=== PATIENT | male | born 1950 | race Caucasian/White ===

== ENCOUNTER → 2023-07-26 06:26 | Outpatient (REF) | payer MEDICARE, SELFPAY ==
[2023-07-26 07:40] LABS: ALT (SGPT) 27 U/L (0-50); AST (SGOT) 30 U/L (17-59); Albumin 4.7 g/dl (3.5-5.0); Alkaline Phosphatase 60 U/L (38-126); Blood Urea Nitrogen 25 mg/dl (9-20); Calcium 9.9 mg/dl (8.4-10.2); Carbon Dioxide 25 mmol/L (22-30); Chloride 103 mmol/L (98-107); Glucose 152 mg/dl (70-99); HDL Cholesterol 80 mg/dl; LDL Cholesterol, Calculated 48 mg/dl; Potassium 5.3 mmol/L (3.5-5.1); Sodium 135 mmol/L (135-145); Total Bilirubin 0.3 mg/dl (0.2-1.3); Total Cholesterol 147 mg/dl (50-199); Total Protein 7.2 g/dl (6.3-8.2); Triglyceride 97 mg/dl (10-149); Very Low Density Lipoprotein 19 mg/dl (0-30)
[2023-07-26 07:43] LABS: Microalbumin, Random Urine < 0.6 mg/dl (0.6-1.7)
[2023-07-26 07:54] LABS: eGFR > 60.00
[2023-07-26 08:05] LABS: TSH 3.21 uIU/ml (0.47-4.68)
[2023-07-26 11:05] LABS: Glycohemoglobin (HgbA1c) 6.6 % (4.0-5.6)
== END ==
LOC: REG 06:26
PROVIDERS: ATTENDING PHYSICIAN Internal Medicine Endocrinology, Diabetes & Metabolism
DX: E11.65 Type 2 diabetes mellitus with hyperglycemia (principal); Z79.4 Long term (current) use of insulin; E78.49 Other hyperlipidemia
CPT/HCPCS: 36415; 80053; 80061; 82043; 82570; 83036; 84443

== ENCOUNTER 2023-09-22 08:53 | Outpatient (RCR) | payer MEDICARE, SELFPAY | END 2023-09-22 23:59 | disposition home or self-care (01) | LOC: RPT 08:53 | PROVIDERS: ATTENDING PHYSICIAN Physician Assistant Surgical; FAMILY PHYSICIAN Family Medicine | DX: M54.16 Radiculopathy, lumbar region (principal); Z73.6 Limitation of activities due to disability | CPT/HCPCS: 97110; 97140; 97162 ==

== ENCOUNTER → 2023-09-27 07:34 | Outpatient (REF) | payer MEDICARE, SELFPAY | LOC: DHCBC/DCA 07:34 | PROVIDERS: ATTENDING PHYSICIAN Internal Medicine Cardiovascular Disease; FAMILY PHYSICIAN Family Medicine | DX: I25.10 Atherosclerotic heart disease of native coronary artery without angina pectoris (principal); R06.09 Other forms of dyspnea | CPT/HCPCS: 78452; 93017; A9500 ==

== ENCOUNTER 2023-10-16 08:57 | Outpatient (RCR) | payer MEDICARE, SELFPAY | END 2023-10-17 11:59 | disposition home or self-care (01) | LOC: RPT 08:57 | PROVIDERS: ATTENDING PHYSICIAN Physician Assistant Surgical; FAMILY PHYSICIAN Family Medicine | DX: M54.16 Radiculopathy, lumbar region (principal); Z73.6 Limitation of activities due to disability | CPT/HCPCS: 97110; 97140; 97530 ==

== ENCOUNTER → 2023-11-09 07:01 | Outpatient (REF) | payer MEDICARE, SELFPAY ==
[2023-11-09 07:49] LABS: % Eosinophils 4.9 % (0-6); % Immature Granulocytes 0.1 % (0-0.5); % Lymphocytes 25.5 % (20.5-51.1); % Neutrophils 58.5 % (42.2-75.2); Absolute Basophils 0.1 10^3/uL (0-0.2); Absolute Eosinophils 0.4 10^3/uL (0-0.7); Absolute Lymphocytes 1.9 10^3/uL (1.2-3.4); Absolute Monocytes 0.7 10^3/uL (0.1-0.6); Absolute Neutrophils 4.3 10^3/uL (1.4-6.5); Hematocrit 42.7 % (39.0-52.0); Hemoglobin 13.8 g/dL (13.0-18.0); Mean Corp Hgb Conc. 32.3 g/dL (33.0-37.0); Mean Corpuscular Volume 80.6 fL (80.0-94.0); Mean Platelet Volume 10.2 fL (7.4-10.4); Nucleated Red Blood Cells % 0 % (-); Platelet Count 228 10^3/uL (130-400); Red Cell Dist. Width 15.2 % (11.5-14.5); White Blood Cell Count 7.3 10^3/uL (4.8-10.8)
[2023-11-09 07:52] LABS: Urine Albumin Negative (Neg - Trace); Urine Bilirubin Negative (Negative); Urine Character Clear (Clear); Urine Color Yellow; Urine Glucose 3+ (Negative); Urine Ketone Negative (Negative); Urine Leukocyte Negative (Negative); Urine Nitrite Negative (Negative); Urine Occult Blood Negative (Negative); Urine Specific Gravity 1.015 (<1.030); Urine Urobilinogen Negative (Neg - 1+)
[2023-11-09 08:21] LABS: ALT (SGPT) 23 U/L (0-50); AST (SGOT) 33 U/L (17-59); Albumin 4.4 g/dl (3.5-5.0); Alkaline Phosphatase 57 U/L (38-126); Blood Urea Nitrogen 23 mg/dl (9-20); Calcium 9.7 mg/dl (8.4-10.2); Carbon Dioxide 23 mmol/L (22-30); Chloride 105 mmol/L (98-107); Glucose 143 mg/dl (70-99); HDL Cholesterol 76 mg/dl; LDL Cholesterol, Calculated 50 mg/dl; Potassium 4.7 mmol/L (3.5-5.1); Sodium 135 mmol/L (135-145); Total Bilirubin 0.5 mg/dl (0.2-1.3); Total Cholesterol 140 mg/dl (50-199); Total Protein 6.8 g/dl (6.3-8.2); Triglyceride 72 mg/dl (10-149); Very Low Density Lipoprotein 14 mg/dl (0-30); eGFR > 60.00
[2023-11-09 08:37] LABS: Vitamin D, 25-OH*** 65.8 ng/mL (30-80)
[2023-11-09 08:51] LABS: PSA, Total - Screen 1.06 ng/ml (0.0-4.0)
[2023-11-09 08:53] LABS: TSH 3.19 uIU/ml (0.47-4.68)
[2023-11-09 09:16] LABS: Microalbumin, Random Urine <0.6 mg/dl (0.6-1.7)
[2023-11-10 10:12] LABS: Glycohemoglobin (HgbA1c) 6.8 % (4.0-5.6)
== END ==
LOC: REG 07:01
PROVIDERS: ATTENDING PHYSICIAN Internal Medicine Endocrinology, Diabetes & Metabolism; FAMILY PHYSICIAN Family Medicine; OTHER PHYSICIAN Internal Medicine Advanced Heart Failure and Transplant Cardiology; REFERRING PHYSICIAN Internal Medicine Cardiovascular Disease
DX: E11.69 Type 2 diabetes mellitus with other specified complication (principal); Z12.5 Encounter for screening for malignant neoplasm of prostate; E11.9 Type 2 diabetes mellitus without complications; E55.9 Vitamin D deficiency, unspecified
CPT/HCPCS: 36415; 80053; 80061; 81003; 82043; 82306; 82570; 83036; 84443; 85025; G0103

== ENCOUNTER → 2024-02-08 06:39 | Outpatient (REF) | payer MEDICARE, SELFPAY ==
[2024-02-08 07:46] LABS: ALT (SGPT) 25 U/L (0-50); AST (SGOT) 31 U/L (17-59); Albumin 4.6 g/dl (3.5-5.0); Alkaline Phosphatase 54 U/L (38-126); Blood Urea Nitrogen 25 mg/dl (9-20); Calcium 9.7 mg/dl (8.4-10.2); Carbon Dioxide 27 mmol/L (22-30); Chloride 102 mmol/L (98-107); Glucose 123 mg/dl (70-99); HDL Cholesterol 74 mg/dl; LDL Cholesterol, Calculated 56 mg/dl; Potassium 4.8 mmol/L (3.5-5.1); Sodium 140 mmol/L (135-145); Total Bilirubin 0.3 mg/dl (0.2-1.3); Total Cholesterol 149 mg/dl (50-199); Total Protein 7.1 g/dl (6.3-8.2); Triglyceride 95 mg/dl (10-149); Very Low Density Lipoprotein 19 mg/dl (0-30); eGFR > 60.00
[2024-02-08 09:09] LABS: Glycohemoglobin (HgbA1c) 6.8 % (4.0-5.6)
== END ==
LOC: REG 06:39
PROVIDERS: ATTENDING PHYSICIAN Internal Medicine Endocrinology, Diabetes & Metabolism; FAMILY PHYSICIAN Family Medicine; OTHER PHYSICIAN Internal Medicine Advanced Heart Failure and Transplant Cardiology; REFERRING PHYSICIAN Internal Medicine Cardiovascular Disease
DX: E11.9 Type 2 diabetes mellitus without complications (principal)
CPT/HCPCS: 36415; 80053; 80061; 83036

== ENCOUNTER → 2024-03-13 09:08 | Outpatient (REF) | payer MEDICARE, SELFPAY | LOC: RCS 09:08 | PROVIDERS: ATTENDING PHYSICIAN Internal Medicine Cardiovascular Disease; FAMILY PHYSICIAN Family Medicine | DX: R06.09 Other forms of dyspnea (principal); I35.1 Nonrheumatic aortic (valve) insufficiency | CPT/HCPCS: 93306 ==

== ENCOUNTER → 2024-03-25 06:30 | Outpatient (REF) | payer MEDICARE, SELFPAY ==
[2024-03-25 08:21] LABS: Blood Urea Nitrogen 21 mg/dl (9-20); Calcium 9.4 mg/dl (8.4-10.2); Carbon Dioxide 22 mmol/L (22-30); Chloride 102 mmol/L (98-107); Glucose 124 mg/dl (70-99); Potassium 4.3 mmol/L (3.5-5.1); Sodium 137 mmol/L (135-145); eGFR > 60.00
== END ==
LOC: REG 06:30
PROVIDERS: ATTENDING PHYSICIAN Internal Medicine Cardiovascular Disease; FAMILY PHYSICIAN Family Medicine
DX: I77.819 Aortic ectasia, unspecified site (principal); I10 Essential (primary) hypertension
CPT/HCPCS: 36415; 80048

== ENCOUNTER → 2024-04-11 07:29 | Outpatient (REF) | payer OTHER, SELFPAY | LOC: RAD 07:29 | PROVIDERS: ATTENDING PHYSICIAN Internal Medicine Cardiovascular Disease; FAMILY PHYSICIAN Family Medicine | DX: I77.819 Aortic ectasia, unspecified site (principal) | CPT/HCPCS: 71275; Q9967 ==

== ENCOUNTER → 2024-05-09 06:19 | Outpatient (REF) | payer OTHER, SELFPAY ==
[2024-05-09 07:34] LABS: ALT (SGPT) 25 U/L (0-50); AST (SGOT) 28 U/L (17-59); Albumin 4.3 g/dl (3.5-5.0); Alkaline Phosphatase 56 U/L (38-126); Blood Urea Nitrogen 17 mg/dl (9-20); Calcium 9.3 mg/dl (8.4-10.2); Carbon Dioxide 21 mmol/L (22-30); Chloride 104 mmol/L (98-107); Glucose 110 mg/dl (70-99); HDL Cholesterol 70 mg/dl; LDL Cholesterol, Calculated 43 mg/dl; Potassium 3.9 mmol/L (3.5-5.1); Sodium 136 mmol/L (135-145); Total Bilirubin 0.4 mg/dl (0.2-1.3); Total Cholesterol 130 mg/dl (50-199); Total Protein 6.6 g/dl (6.3-8.2); Triglyceride 85 mg/dl (10-149); Very Low Density Lipoprotein 17 mg/dl (0-30); eGFR > 60.00
[2024-05-09 08:48] LABS: TSH 3.59 uIU/ml (0.47-4.68)
[2024-05-09 09:43] LABS: Glycohemoglobin (HgbA1c) 6.3 % (4.0-5.6)
== END ==
LOC: REG 06:19
PROVIDERS: ATTENDING PHYSICIAN Internal Medicine Endocrinology, Diabetes & Metabolism; FAMILY PHYSICIAN Family Medicine
DX: E11.65 Type 2 diabetes mellitus with hyperglycemia (principal); Z79.4 Long term (current) use of insulin; E78.2 Mixed hyperlipidemia; I10 Essential (primary) hypertension
CPT/HCPCS: 36415; 80053; 80061; 83036; 84443

== ENCOUNTER → 2024-08-06 06:24 | Outpatient (REF) | payer OTHER, SELFPAY ==
[2024-08-06 08:10] LABS: ALT (SGPT) 22 U/L (0-50); AST (SGOT) 26 U/L (17-59); Albumin 4.6 g/dl (3.5-5.0); Alkaline Phosphatase 54 U/L (38-126); Blood Urea Nitrogen 18 mg/dl (9-20); Calcium 10.3 mg/dl (8.4-10.2); Carbon Dioxide 26 mmol/L (22-30); Chloride 103 mmol/L (98-107); Glucose 120 mg/dl (70-99); HDL Cholesterol 71 mg/dl; LDL Cholesterol, Calculated 44 mg/dl; Potassium 4.4 mmol/L (3.5-5.1); Sodium 137 mmol/L (135-145); Total Bilirubin 0.6 mg/dl (0.2-1.3); Total Cholesterol 137 mg/dl (50-199); Total Protein 7.1 g/dl (6.3-8.2); Triglyceride 110 mg/dl (10-149); Very Low Density Lipoprotein 22 mg/dl (0-30); eGFR > 60.00
[2024-08-06 08:40] LABS: TSH 4.33 uIU/ml (0.47-4.68)
[2024-08-06 09:33] LABS: Glycohemoglobin (HgbA1c) 6.4 % (4.0-5.6)
== END ==
LOC: REG 06:24
PROVIDERS: ATTENDING PHYSICIAN Internal Medicine Endocrinology, Diabetes & Metabolism; FAMILY PHYSICIAN Family Medicine; OTHER PHYSICIAN Internal Medicine Advanced Heart Failure and Transplant Cardiology; REFERRING PHYSICIAN Internal Medicine Cardiovascular Disease
DX: E11.9 Type 2 diabetes mellitus without complications (principal); E78.2 Mixed hyperlipidemia; I10 Essential (primary) hypertension
CPT/HCPCS: 36415; 80053; 80061; 83036; 84443

== ENCOUNTER 2024-08-15 12:55 | Inpatient (IN) | payer OTHER, SELFPAY ==
[2024-08-15] VITALS (17 sets, daily range): BP systolic 110–156; BP diastolic 54–69; BMI 23.6
[2024-08-15] MEDS: LOW STRENGTH ASPIRIN 324 MG PO (08:57)
--- NOTE | 2024-08-15 09:02 | ED.GENMED ---
History of Present Illness
General
Chief Complaint: Chest Problem
Source: patient and physician
Exam Limitations: none
Time Seen by Provider: 08/15/24 08:52
Nursing documentation reviewed up to this point in time: agreed with
History of Present Illness
History of Present Illness:
74-year-old male with a past medical history as noted presents to the ER for evaluation of chest pain. Patient reports that over the past 6 weeks he has had increasing frequency of exertional chest pain. He is now having symptoms with even light
exertion to the point that he has not been able to go to the gym for the past week. Went to see his dye house vat worker today (Dr. Adriana Faith) and was found to have new T wave abnormalities on EKG and was referred to the ER for admission. He denies
any symptoms at rest, currently asymptomatic. He denies any associated shortness of breath, nausea, vomiting, diaphoresis. He notes that he has been taking Tums because he describes the pain as burning and thought his symptoms could be from
heartburn. He does have history of prior CABG; he says his last cardiac catheterization was in 2019 at [facility].
Past History
Past History
ED Past Medical History: CAD, HTN, Hypercholesterolemia, NIDDM, Other (Meniere's, BPPV) and Other (JAIR)
ED Past Surgical History: Cardiac (CABG x 2006)
Social History
Tobacco: Non-smoker
Alcohol: None
Personal:
Living: with family
Employment: Retired
Family History
Family History: Other (daughter with POTS)
Review of Systems
Review of Systems
All Other Systems: ROS reviewed and negative except as documented in HPI and ROS
Respiratory: Denies trouble breathing
Cardiac: Reports chest pain; Denies diaphoresis or syncope
ABD/GI: Denies abdominal pain, nausea or vomiting
: Denies flank pain
Musculoskeletal: Denies neck pain or back pain
Neurological: Denies headache, weakness or numbness
Phy Exam
Physical Exam
Physical Exam:
General: Awake, alert; no acute distress
Head: Normocephalic, atraumatic
Eyes: Conjunctiva normal
Throat: Airway intact, handling secretions
Neck: Trachea midline, no JVD
Lungs: Clear to auscultation bilaterally, no wheezing, rales, rhonchi
Heart: Regular rate and rhythm, no murmurs, gallops, or rubs
Abd: Soft, non distended, nontender
Neuro: No gross deficits
Extremities: No edema in extremities, equal pulses in all extremities
Scores
Heart Failure Risk
Heart Failure Risk Score: Not Applicable
Heart Score for Chest Pain Patients
STEMI patient?: No
History: Highly Suspicious
ECG: Significant ST-Depression
Age: >/= 65 years
Risk Factors: >/= 3 Risk Factors or History of CAD
Troponin: </= Normal Limit
Heart Score for Chest Pain Patients: 8
Heart Score Risk: 72.7 % MACE over next 6 weeks
Withdrawal Assessment of Alcohol
Withdrawal Assessment Completed?: Not applicable
Course
Orders/Labs/Results
Orders:
Orders
08/15/24 08:38
Electrocardiogram (*1) Urgent
Reason for Study: Chest Pain
EKG- Treatment ONCE
08/15/24 08:52
CARDIOLOGY CONSULT Urgent
Consulting Provider: Shilo Ji
Was physician already notified: Yes
Aspirin Chewable [Low Strength Aspirin] 324 mg PO NOW STA
08/15/24 08:57
Complete Blood Count/With Diff Urgent
Comprehensive Metabolic Panel Urgent
PTT Urgent
Prothrombin Time Urgent
08/15/24 09:07
CR Chest Portable - 1 View Urgent
Comment:
Reason For Exam: chest pain
Reason Study Needs to be Portable: Unable to Transport
08/15/24 09:49
Troponin I Urgent
08/15/24 09:54
Heparin 4,000 units IV NOW STA
Nursing to Place Non Medication Order As Directed
Physician Order: PTT 6 hours after initial start of Heparin infusion
Above order entered?: Yes
08/15/24 10:00
Heparin 49185 Units/250 ml 25,000 units in 250 ml IV PER PROTOCOL
Weight to be used for heparin protocol in kilograms (kg):: 72.4
Protocol:: Cardiac Tx/Acute Coronary
PTT Goal Range to be used:: PTT 73 to 111 seconds
Order type:: Initial
INITIAL Infusion Dose (UNITS/KG/hr) & then follow protocol:: 12 units/kg/hr
Infusion Dose in UNITS/hr & then follow protocol (UNITS/hr):: 850
INFUSION RATE in mL/hr & then follow protocol (mL/hr):: 8.5
PTT less than or equal to 64 seconds:: Increase rate by 200 units/hr (+ 2 mL/hr)
PTT 64.1 to 72.9 seconds:: Increase rate by 100 units/hr (+ 1 mL/hr)
PTT 73 to 111 seconds:: Target Range. No change in rate.
PTT 111.1 to 130.9 seconds:: Decrease rate by 100 units/hr (- 1 mL/hr)
PTT 131 to 199.9 seconds:: HOLD for 1 hr. Then decrease rate by 200 units/hr (- 2 mL/hr)
PTT greater than or equal to 200 seconds:: HOLD for 2 hrs & Notify Provider. Then decrease by 200 units/hr (-
2 mL/hr)
Lab follow-up:: Each change, PTT q6h until 2 consecutive are therapeutic. Then PTT
daily.
08/15/24 10:45
Dextrose 50%-Water [Dextrose 50% Syringe] 12.5 grams IV [id number] PRN
08/15/24 16:00
PTT Routine
Abnormal Lab Results
08/15/24
08:57
Chloride 111 H mmol/L
(98-107)
Carbon Dioxide 19 L mmol/L
(22-30)
Glucose 105 H mg/dl
(70-99)
08/15/24 08:57
08/15/24 08:57
Vital Signs
Initial and Last Documented VS:
Initial Vital Signs
Temp Pulse Resp BP Pulse Ox
36.6 C 69 16 156/68 98
08/15/24 08:47 08/15/24 08:47 08/15/24 08:47 08/15/24 08:47 08/15/24 08:47
Last Documented Vital Signs
Temp Pulse Resp BP Pulse Ox
36.6 C 69 16 156/68 98
08/15/24 08:47 08/15/24 08:47 08/15/24 08:47 08/15/24 08:47 08/15/24 08:47
MDM/Problems Addressed
Differential Diagnosis Includes:
Angina/ACS, GERD
MDM/Problems Addressed:
74-year-old male presents for evaluation of increasing exertional chest pains x 6 weeks; extensive cardiac history. He was seen by dye house vat worker in the office today found to have abnormal EKG and symptoms highly concerning for angina and was
referred to the emergency room for admission. He is hypertensive but otherwise normal vitals. Fortunately he is symptom-free at present. IV placed labs sent off including a CBC and a CMP. Check coags. Will send off a troponin. Check chest
x-ray. Discussed case with cardiology for consultation�recommended aspirin, initiating heparin infusion.
Initial labs reviewed: CBC and CMP no clinically significant abnormalities. Chest x-ray shows no acute disease. Troponin undetectable. Cardiology consulting. Discussed with hospitalist for admission.
Chronic conditions affecting care:
CAD
Acute Exacerbation and/or Progression of Chronic Illness:
Hypertensive
Acute Exacerbation and/or Progression of Chronic Illness: HTN
*Radiology
Radiology exam reviewed: preliminary read by ED provider and radiology read reviewed
*Pulse Oximetry
Patient hypoxic: no
*EKG
Interpreted by ED Provider?: Yes
Heart Rate: 72
Rate: normal
Rhythm: sinus
[place]: normal axis
Interval: normal interval
QRS Pattern: normal QRS
Ischemia: T-wave inversion (Anterior lateral)
*Critical Care Note
Total Time (30-74mins, 75-104mins- exclusive of procedures): Not Applicable
Data Reviewed
Review of Other/Old Records Reveals: Labs and Records
Source: patient, records and physician
Patient Management
Discussion with other providers: Hospitalist (Discussed with hospitalist) and Adult Crossing Guard (Discussed with dye house vat worker)
Escalation/DeEscalation of care consider admission/obs:
Admission indicated
ED Attending Note
-
Portions of this chart may have been created with voice recognition software.� Occasional wrong word or��sound alike� substitutions may have occurred due to the inherent limitations of voice recognition software.
Discharge Plan
Departure
Patient Disposition: Admit
Date of Disposition: 08/15/24
Time of Disposition: 11:23
Admit to doctor: Viola
Presentation/result/management discussed w/ accepting MD/DO: Hospitalist
Discharge Problem:
Unstable angina
Prescriptions:
No Action
cyanocobalamin (vitamin B-12) 100 MCG tablet
500 mcg PO DAILY
omeprazole 40 MG capsule,delayed release(DR/EC)
40 mg PO DAILY
ezetimibe [Zetia] 10 MG tablet
10 mg PO QPM
cholecalciferol (vitamin D3) 2,000 UNITS tablet
2,000 units PO DAILY
Jardiance 25 MG tablet
25 mg PO DAILY
nitroglycerin 0.4 MG tablet, sublingual
0.4 mg sublingual [id number] PRN (Reason: chest pain) Qty: 30 0RF
rosuvastatin [Crestor] 10 mg Tablet
10 mg PO QPM
glimepiride 4 mg Tablet
4 mg PO BIDPRN PRN (Reason: high blood sugar)
acetazolamide 125 mg Tablet
125 mg PO DAILY Qty: 1 0RF
acetazolamide 125 mg Tablet
62.5 mg PO QPM Qty: 1 0RF
inulin-sorbitol 2 gram Tablet,Chewable
1 tab PO TID
Mounjaro 7.5 mg/0.5 mL Pen Injector
7.5 mg SC WE
sennosides [senna] 8.6 mg tablet
8.6 mg PO BID
lisinopril 5 mg tablet
5 mg PO QPM
Saccharomyces boulardii [Florastor] 250 mg capsule
250 mg PO DAILY
polyethylene glycol 3350 [Miralax] 17 gram Powder In Packet
17 g PO DAILYPRN PRN (Reason: CONSTIPATION)
aspirin 81 mg Tablet,Delayed Release (Dr/Ec)
81 mg PO HS
metformin 500 mg Tablet Extended Release 24 Hr
1,000 mg PO BID
coQ10 (ubiquinol) 100 mg Capsule
100 mg PO DAILY
Interventions
Interventions:
*Risk Screen - Suicide Last Done: 08/15/24 08:39
*General Assessment Last Done: 08/15/24 09:10
*Neglect/Abuse Screening Last Done: 08/15/24 08:39
ED- Cardiac Assessment Last Done: 08/15/24 09:14
ED- Pulmonary Assessment Last Done: 08/15/24 09:14
Discharge Date and Time
Print Language: UKRAINIAN
[2024-08-15 09:28] LABS: % Basophils 0.8 % (0-2); % Eosinophils 5.1 % (0-6); % Immature Granulocytes 0.3 % (0-0.5); % Lymphocytes 26.1 % (20.5-51.1); % Monocytes 7.1 % (1.7-9.3); % Neutrophils 60.6 % (42.2-75.2); Absolute Basophils 0.1 10^3/uL (0-0.2); Absolute Eosinophils 0.4 10^3/uL (0-0.7); Absolute Monocytes 0.5 10^3/uL (0.1-0.6); Absolute Neutrophils 4.6 10^3/uL (1.4-6.5); Hematocrit 47.5 % (39.0-52.0); Hemoglobin 15.8 g/dL (13.0-18.0); Mean Corp Hgb Conc. 33.3 g/dL (33.0-37.0); Mean Corpuscular Hgb 28.4 pg (27.0-31.0); Mean Corpuscular Volume 85.3 fL (80.0-94.0); Mean Platelet Volume 10.2 fL (7.4-10.4); Nucleated Red Blood Cells % 0 % (-); Platelet Count 239 10^3/uL (130-400); Red Blood Cell Count 5.57 10^6/uL (4.70-6.10); Red Cell Dist. Width 14.4 % (11.5-14.5); White Blood Cell Count 7.6 10^3/uL (4.8-10.8)
[2024-08-15 09:39] LABS: ALT (SGPT) 19 U/L (0-50); AST (SGOT) 23 U/L (17-59); Alkaline Phosphatase 44 U/L (38-126); Blood Urea Nitrogen 18 mg/dl (9-20); Calcium 8.4 mg/dl (8.4-10.2); Carbon Dioxide 19 mmol/L (22-30); Chloride 111 mmol/L (98-107); Estimated Creatinine Clearance 90 ml/min; Glucose 105 mg/dl (70-99); Potassium 3.9 mmol/L (3.5-5.1); Sodium 139 mmol/L (135-145); Total Bilirubin 0.4 mg/dl (0.2-1.3); Total Protein 6.3 g/dl (6.3-8.2); eGFR > 60.00
[2024-08-15 09:40] LABS: INR 0.95; PT 13.2 Sec (11.4-14.6)
[2024-08-15 09:41] LABS: APTT 29.9 Sec (23.4-35.0)
[2024-08-15] MEDS: HEPARIN 25000 UNITS/250 ML IV (10:06)
[2024-08-15] MEDS: HEPARIN 4000 UNITS IV (10:09)
[2024-08-15 10:21] LABS: Troponin I < 0.012 ng/ml
--- NOTE | 2024-08-15 11:28 | W.PN.CARDCBS ---
Addendum entered and electronically signed by Adriana Faith MD 08/15/24 12:55:
I saw and examined the patient.
The Inventory Control Associate's note was reviewed and I agree with the note.
Comment:
Please refer to exam which was unchanged on office visit note from today by me. Patient came to the office today for assessment. He has known coronary disease with prior bypass surgery in 2006. Catheterization as noted in 2019. Prior to bypass
surgery multiple stents including brachytherapy. Patient has lost weight with Mounjaro and about 3 weeks to 4 weeks ago developed substernal chest discomfort with exertion which she thought may be secondary to reflux. Symptoms have continued
despite antireflux medication although symptoms may be a bit improved. More recently this week he has a decrease in activity level and had to slow down at the gym because of recurrence of chest discomfort which in my opinion is consistent with
angina. EKG is very abnormal in the office today with T wave inversions in the anterior lateral leads. This is new compared to prior. Patient appears to be having angina which has been progressive but is not occurring at rest. This was discussed
at great length with the patient and his during office visit. Of note patient had stress test which was negative for ischemia at high level 09/2023 and recent echo with normal heart function and mild aortic valve diseaseWith mild aortic valve
stenosis and mild to moderateaortic regurgitation..
Given increased anginal symptoms plan at this time:
- Patient was brought to the emergency department for assessment
- Patient will be stabilized and undergo cardiac catheterization
- Hold metformin and any nephrotoxic medications prior to cardiac catheterization
- Aspirin, IV heparin, lipid-lowering (last lipids were stable)
- Continue medications otherwise.
- History of diabetes noted improved in the setting of weight loss with Mounjaro.
- Follow telemetry
- All labs and EKGs reviewed personally by me.
-Continue aggressive risk factor modification.
Original Note:
Today's Communication / Plan
-
IV heparin
check lipids
cardiac cath
Impression / Plan
-
Please refer to office note dated 08/15/24
Primary Longwall Foreman: Dr. Adriana Faith
Assessment:
Presentation with chest burning with exertion, concern for crescendo angina
Abnormal EKG
CAD s/p CABG x3 in 2006 [facility] with one graft reportedly nonfunctional, history of multiple PCI with stent in stent and brachytherapy
DM2, on mounjaro since 01/2024
HLD with elevated LP(a)
History of vertigo/Meniere's disease
JAIR on CPAP
GERD
Cath 05/23/2018 at [facility]: Proximally occluded LAD at previously stented area, diffuse disease of RCA with 40% PL lesion and collaterals to distal LAD, VG to ramus into second diagonal patent, SALAS to LAD patent, LAD occluded after insertion with
retrograde filling of LAD via graft
ECHO 03/13/24: EF 55 to 60%, no regional wall motion abnormalities noted, mild , mild to moderate eccentric AR, dilated sinus of Valsalva 4.3 cm
Plan:
- Patient was seen in cardiology office today for follow-up appointment and complained of chest burning with exertion, relieved with rest. He reports his tolerance of walking outside and on the treadmill has decreased recently. He also feels as
though he is more fatigued. He attempted to change his GERD medications and has been taking Tums, however without relief of symptoms. In our office today, EKG noted to have new lateral T wave inversions and patient was referred to ER for cardiac
catheterization. He has been started on IV heparin. He has been compliant with asa as OP. He reports he was started on mounjaro 01/2024 and since initiation has lost ~30 pounds and has been able to come off insulin. Denies lightheadedness, N/V, arm
pain.
- NPO for cath today. last from 2018 at [facility] as above
- continue asa
- check lipids. continue OP crestor zetia.
- hold OP diabetic meds including metformin
- further recommendations pending results of cath
- d/w patient and at bedside
Progress Note - Longwall Foreman
Subjective
Date of Service: August 15, 2024
no CP at present
Objective
Labs:
08/15/24 08:57
08/15/24 08:57
Labs
Hgb 15.8 g/dL (13.0-18.0) 08/15/24 08:57
Hct 47.5 % (39.0-52.0) 08/15/24 08:57
Plt Count 239 10^3/uL (130-400) 08/15/24 08:57
PT 13.2 Sec (11.4-14.6) 08/15/24 08:57
INR 0.95 08/15/24 08:57
APTT 29.9 Sec (23.4-35.0) 08/15/24 08:57
Sodium 139 mmol/L (135-145) 08/15/24 08:57
Potassium 3.9 mmol/L (3.5-5.1) 08/15/24 08:57
BUN 18 mg/dl (9-20) 08/15/24 08:57
Creatinine 0.7 mg/dL (0.7-1.3) 08/15/24 08:57
Glucose 105 mg/dl (70-99) H 08/15/24 08:57
Troponins
08/15/24 08/15/24
08:57 09:49
Troponin I Cancelled < 0.012
Vital Signs and I&O:
Vital Signs
Temp Pulse Resp BP Pulse Ox
97.8 F 69 16 156/68 98
08/15/24 08:47 08/15/24 08:47 08/15/24 08:47 08/15/24 08:47 08/15/24 08:47
Vital Signs
Temp Pulse Resp BP Pulse Ox
97.8 F 69 16 156/68 98
08/15/24 08:47 08/15/24 08:47 08/15/24 08:47 08/15/24 08:47 08/15/24 08:47
Physical Exam
Physical Exam
GEN: No distress, awake, alert, oriented x3
HEENT: supple, anicteric, mmm, eomi
LUNGS: CTA B/L, no wheezes
CV: Reg, S1/S2, no murmur
ABD: soft, BS+, NT/ND
EXT: No cyanosis, clubbing, edema
NEURO: Gross non-focal
SKIN: Warm, pink, dry. No rash
[2024-08-15 12:00] LABS: Glucose - Point of Care 72 mg/dl (70-99)
--- NOTE | 2024-08-15 12:05 | HPS.HSE ---
Family Physician
-
Family Physician: Manuel Escalante
Chief Complaint
-
left sided chest pain
History of Present Illness
74-year-old male with a past medical history for type 2 diabetes, hyperlipidemia, GERD, coronary artery disease status post CABG presented to us with left-sided chest pain for past 5 weeks. He feels the chest pain only with exertion. Resolves with
rest. Patient denied any radiation to arm, neck and shoulder. Patient denied any short of breath. Patient denied any headache, dizzy, syncope. Patient denied any abdominal pain, nausea, vomiting or diarrhea. Patient denied any dysuria or
hematuria.
Patient was evaluated by manager intensive care unit today (Dr. Adriana Faith) and was found to have new T wave abnormalities on EKG and was referred to the ER for admission.
Plan for cardiac cath today. Admitted for further management
Medical History
Past Medical History
Past Medical History: Reports Other
Additional Past Medical History:
CAD
type 2 DM
HLD
vertigo
meniere's disease
JAIR
GERD
anxiety
osteoarthritis
htn
Past Surgical History: Reports Other
Additional Past Surgical History:
CABG
Tonsillectomy
Lumbrical hernia repair
Left rotator cuff tear repair
TURP
Panniculectomy
Cataract surgery
Right shoulder surgery
Right АННА
Retinal LASIK surgery for detachment
Social History
Tobacco: Non-smoker
Alcohol: None
Drug: None
Personal:
Living: With Family
Family History
Family History: Not pertinent
Allergies / Home Medications
Allergies reflects when Allergies were last updated in [employer].
Home Medications with original date entered in [employer]
Allergy/Medication List:
Allergies
Allergy/AdvReac Type Severity Reaction Status Date / Time
diazepam [From Valium] Allergy Hallucinati Verified 08/15/24 08:40
ons
dulaglutide [From Trulicity] Allergy Itching Verified 08/15/24 08:40
Home Medications
cholecalciferol (vitamin D3) 50 mcg (2,000 unit) tablet 2,000 units PO DAILY Supplement 10/26/19
cyanocobalamin (vitamin B-12) 100 mcg tablet 500 mcg PO DAILY Supplement 10/26/19
empagliflozin 25 mg tablet (Jardiance) 25 mg PO DAILY Diabetes 10/26/19
ezetimibe 10 mg tablet (Zetia) 10 mg PO QPM High cholesterol 10/26/19
omeprazole 40 mg capsule,delayed release 40 mg PO DAILY Gastrointestinal issue 10/26/19
nitroglycerin 0.4 mg sublingual tablet 0.4 mg sublingual [id number] PRN chest pain #30 tabs 11/16/19
glimepiride 4 mg tablet 4 mg PO BIDPRN PRN high blood sugar 01/19/22
rosuvastatin 10 mg tablet (Crestor) 10 mg PO QPM 01/19/22
acetazolamide 125 mg tablet 62.5 mg (1/2 x 125 mg) PO QPM #1 tab 06/29/22
acetazolamide 125 mg tablet 125 mg PO DAILY #1 tab 06/29/22
Saccharomyces boulardii 250 mg capsule (Florastor) 250 mg PO DAILY 08/15/24
aspirin 81 mg tablet,delayed release 81 mg PO HS 08/15/24
coQ10 (ubiquinol) 100 mg capsule 100 mg PO DAILY 08/15/24
inulin-sorbitol 2 gram chewable tablet 1 tab PO TID 08/15/24
lisinopril 5 mg tablet 5 mg PO QPM 08/15/24
metformin 500 mg tablet,extended release 24 hr 1,000 mg PO BID 08/15/24
polyethylene glycol 3350 17 gram oral powder packet (Miralax) 17 g PO DAILYPRN PRN CONSTIPATION 08/15/24
sennosides 8.6 mg tablet (senna) 8.6 mg PO BID 08/15/24
tirzepatide 7.5 mg/0.5 mL subcutaneous pen injector (Mounjaro) 7.5 mg SC WE 08/15/24
Review of Systems
-
Constitutional: Reports No Symptoms
EENT: Reports No Symptoms
Respiratory: Reports No Symptoms
Cardiac: Reports Chest Pain
Abdomen/GI: Reports No Symptoms
: Reports No Symptoms
Musculoskeletal: Reports No Symptoms
Skin: Reports No Symptoms
Neurological: Reports No Symptoms
Endocrine: Reports No Symptoms
Hematologic/Lymphatic: Reports No Symptoms
Psych: Reports No Symptoms
Physical Exam
Vital Signs
Vital Signs
Temp Pulse Resp BP Pulse Ox
97.8 F 69 16 156/68 98
08/15/24 08:47 08/15/24 08:47 08/15/24 08:47 08/15/24 08:47 08/15/24 08:47
Physical Exam
General: Well Developed, Well Nourished and No Apparent Distress
HEENT: NormoCephalic, Moist mucous membranes and Atraumatic
Respiratory: Clear
Cardiac: S1/S2 and Regular Rhythm; No Murmur or Rub
GI: Soft, Non Tender, Non Distended and Normal Bowel Sounds; No Organomegaly
Rectal: Deferred by Provider
Musculoskeletal: No Clubbing, No Cyanosis and No Edema
Skin: No Rash
Neuro: AO x 3 and Nonfocal/grossly intact
Psych: Calm
Laboratory Results
-
08/15/24 08:57
08/15/24 08:57
Laboratory Results
PT 13.2 Sec (11.4-14.6) 08/15/24 08:57
INR 0.95 08/15/24 08:57
APTT 29.9 Sec (23.4-35.0) 08/15/24 08:57
Total Bilirubin 0.4 mg/dl (0.2-1.3) 08/15/24 08:57
AST 23 U/L (17-59) 08/15/24 08:57
ALT 19 U/L (0-50) 08/15/24 08:57
Alkaline Phosphatase 44 U/L (38-126) 08/15/24 08:57
Troponin I < 0.012 ng/ml 08/15/24 09:49
Data Reviewed
-
Diagnostic Radiology: Report Reviewed by me
Lab Data: Labs Reviewed by me
Impression/Plan
-
#unstable angina rule out NSTEMI
-asa and heparin drip continued
-for cath today
-keep patient NPO
-cardiology consulted
-trend trop
-chest xr ay with no acute cardiopulmonary process
-EKG with sinus rhythm with 1st degree AV block. ST and T wave abnormality, ST and T wave abnormality
#HLD
- Zetia, statin continued
# Twx-ufzrznq-ggtftipon diabetes mellitus
- Hold glimepiride, Jardiance, metformin
-Sliding scale
-blood sugar running low
-D5 with normal saline added.
# GERD
- PPI continued
#Coronary artery disease, status post CABG
# Essential hypertension
-Lisinopril continue with hold parameters
#. DVT prophylaxis: Heparin
# CODE STATUS: Full code.
[2024-08-15] MEDS: D5/0.9% SODIUM CHLORIDE 500 IV (12:28)
--- NOTE | 2024-08-15 13:12 | W.PN.UPDATE ---
Update Note
Progress Note Update
This note serves as an addendum to the H&P by freight engineer ESTHELA
Loretta RADHA
HPI
74M HX type 2 diabetes, hyperlipidemia, GERD, coronary artery disease status post CABG seen at ER:
- left-sided chest pain for past 5 weeks
- it exertional CP resolves with rest.
- denied any radiation to arm, neck and shoulde
- denied any short of breath.
Patient was evaluated by plant control aide today (Dr. Adriana Faith) and was found to have new T wave abnormalities on EKG and was referred to the ER for admission.
ROS
Patient denied any headache, dizzy, syncope.
Patient denied any abdominal pain, nausea, vomiting or diarrhea. Patient denied any dysuria or hematuria.
Vital Signs
Temp Pulse Resp BP Pulse Ox
97.8 F 69 16 156/68 98
08/15/24 08:47 08/15/24 08:47 08/15/24 08:47 08/15/24 08:47 08/15/24 08:47
PE
Gen: Thin , not overweight , No Apparent Distress
HEENT: anocteric
Neck: supple
Lungs: CTA
Cor: S1/S2 and Regular Rhythm; No Murmur or Rub
Abdomen: soft and benign exam
KNITTING TESTER: AAO3
MS: no edema
Psych: Nl mood and nl affect
Laboratory Tests
08/15/24 08/15/24 08/15/24
08:57 09:49 11:59
WBC 7.6
Hgb 15.8
INR 0.95
Creatinine 0.7
eGFR > 60.00
Troponin I < 0.012
POC Glucose 72
CXR:
No acute cardiopulmonary process.
EKG rerport
SINUS RHYTHM WITH 1ST DEGREE A-V BLOCK
ST and T WAVE ABNORMALITY, CONSIDER INFERIOR ISCHEMIA
ST and T WAVE ABNORMALITY, CONSIDER ANTEROLATERAL ISCHEMIA
ABNORMAL ECG
WHEN COMPARED WITH ECG OF 16-NOV-2019 17:10,
T WAVE INVERSION NOW EVIDENT IN INFERIOR LEADS
T WAVE INVERSION MORE EVIDENT IN ANTEROLATERAL LEADS
Confirmed by NANI DEUTSCH, [facility] ([id number]) on 08/15/2024 9:55:10 AM
ASSESSMENT & PLAN
ACS eval for NSTEMI
- on ASA and heparin gtt
- NPO for for card cath today
- trend trop
- DCA Card consulted
HLD
- on PLEASURE CRAFT SAILOR Zetia, statin continued
Hypoglycemia; asymptomatic
Roy-usmsvin-hpxnwfdpu diabetes mellitus
- Hold glimepiride, Jardiance, metformin
- ISS Low
-D5NS @40/ H for 500 cc only
-Trend BG
GERD
- PPI continued
Coronary artery disease, status post CABG
Essential hypertension
- on PLE[employer] CRA[employer] SAILOR Lisinopril continue with hold parameters
DVT Px: SQH
Code: Full code
IP TLM
[2024-08-15 16:26] LABS: ACT-LR - POC 340 Seconds (116-155)
[2024-08-15 16:53] LABS: ACT-LR - POC 318 Seconds (116-155)
--- NOTE | 2024-08-15 17:25 | ITS.CL.CATH ---
[facility] - Catheterization
Cardiac Catheterization
Procedure Report:
LEFT HEART CATHETERIZATION AND CORONARY INTERVENTION
Date of Procedure: August 15, 2024
Referring: Dr. Adriana Faith
PROCEDURES:
1. Left heart catheterization with coronary and single-plane left ventriculography
2. Selective saphenous vein graft and NADIA angiography
3. Successful stenting of SVG-diagonal at the touchdown of the graft. A 2.25 x 15 mm Hopewell stent was implanted at nominal pressures and postdilated with a 2.25 mm noncompliant balloon to high pressure
INDICATION: This is a 74-year-old gentleman with a remote history of coronary artery disease and multiple LAD stents with recurring restenosis requiring brachytherapy. Ultimately, the stents failed and he was referred for coronary artery bypass
surgery in 2006 with a SALAS-LAD and saphenous vein graft arising from the same aortic but then bifurcating to 2 different grafts to a ramus and diagonal branch. There is a SALAS to the LAD. His last coronary angiogram was in 2019. The SALAS graft
to the LAD was found to be patent with no antegrade flow beyond the anastomotic segment. There is retrograde filling of the LAD. The saphenous vein graft to the ramus was patent and the saphenous vein graft to the diagonal branch was patent. . "Mary"Yuliet is diabetic but maintains reasonable control of his sugars. He walks between 5 and 8 miles most days and keeps his weight around 159 pounds. His last LDL cholesterol was in the 40s. Over the past several weeks he noted the onset of mid
epigastric discomfort while he was walking. His electrocardiogram today was notable for new anterior T wave inversions and he was referred from our office to the emergency room given the unstable nature of his symptoms.
ACCESS: Right common femoral artery, 6 [place] sheath
HEMODYNAMICS : (mmHg)
AO (s/d) : 140/52
LV (s/d) : 160/80
LVEDP : 17
CORONARY ANGIOGRAPHY
Dominance: Right
LEFT MAIN: Normal
LEFT ANTERIOR DESCENDING: There are multiple overlapping stents from the ostium to mid LAD which are 100% occluded at its origin. This was noted previously in 2019. The SALAS graft to the mid LAD is patent as described below. There is retrograde
filling proximal to the anastomosis but no antegrade flow beyond the anastomotic segment. The SVG-diagonal branch has a 95% distal anastomotic stenosis with some contrast hang up during angiogram.
RAMUS: 40% stenosis
CIRCUMFLEX: The circumflex is a medium caliber nondominant vessel giving rise to a single sizable obtuse marginal branch. Minor irregularities are noted.
RIGHT CORONARY ARTERY: The right coronary artery is a large-caliber dominant vessel. There has been moderate progression of atherosclerotic coronary disease in the distal RCA where a 60% stenosis has progressed somewhat since the last
catheterization. The PDA is a large and supplies apical collaterals to the LAD and to the lateral wall.
GRAFT ANGIOGRAPHY:
1. SALAS-LAD: The SALAS graft to the mid LAD is patent. The LAD fills retrograde back to the occluded stented segment. There is no antegrade flow beyond the SALAS anastomosis. This was previously noted in 2019.
2. SVG-ramus: The saphenous vein graft to ramus intermedius shares a common origin with the saphenous vein graft to a diagonal branch. There is an end-to-side anastomosis supplying flow to the diagonal branch as listed below. The SVG-ramus has a
50% stenosis in its midportion which has progressed since the 2019 angiogram
3. SVG-diagonal: The saphenous vein graft to the diagonal branch demonstrates modest progression of coronary disease within the midportion of the graft. There is sluggish flow into the [place] diagonal branch with contrast hang up at the distal
anastomosis where a 95% stenosis is appreciated.
LEFT VENTRICULOGRAPHY: Left ventriculography is performed in [place] projection. The digital single-plane left ventricular ejection fraction is visually estimated at 50% with mild anterolateral hypokinesis
ANGIOPLASTY PROCEDURE DETAIL: 1. Upon review of the diagnostic catheterization films the decision was made to proceed with revascularization of what was felt to be the culprit stenosis in the SVG-diagonal. Intravenous heparin was administered. A
600 mg loading dose of clopidogrel was given. The origin of the SVG was cannulated with a 6 [place] JR4 guiding catheter and a BMW guidewire across the high-grade stenosis in the distal portion of the saphenous vein graft and into the [place] vessel.
Balloon predilation was performed with a 2.0 mm Euphora balloon and was followed by placement of a 2.25 x 15 mm Xience stent was positioned within the distal graft extending into the [place] diagonal branch. The stent was implanted at nominal
pressures and postdilated with a 2.25 mm noncompliant balloon to high pressure
SEDATION: 69 minutes of procedural sedation was utilized. An independent medical clerical assistant was present to assist with and help manage the patient's level of consciousness and physiologic status.
RADIATION SUMMARY: Fluoro Time (min): 10.9, Dose (mGy): 1188, DAP (Gy.cm2) : 77
Closure Device: 6 [place] Angio-Seal RFA
CONCLUSION
1. Successful stenting of the distal anastomosis of the SVG-diagonal branch with placement of a 2.25 x 15 mm Hopewell stent that was implanted at nominal pressures and postdilated to high pressures with a 2.25 mm noncompliant balloon
2. There has been modest progression of coronary artery disease in the [place] RCA and SVG-ramus. I do not believe either of these represent a culprit lesion causing patient's symptoms.
3. Preserved LVEF
RECOMMENDATIONS
1. I believe we treated the culprit stenosis in the SVG-diagonal. Residual coronary disease can be treated medically with aggressive risk modification and medical therapy.
2. Uninterrupted dual antiplatelet therapy for minimum of 1 year
Copy to: Dr. Adriana Faith
[2024-08-15 17:26] LABS: Glucose - Point of Care 77 mg/dl (70-99)
[2024-08-15] MEDS: NOVOLOG FLEXPEN-LOW RESISTANCE SC (18:20)
[2024-08-15] MEDS: CRESTOR 10 MG PO (18:28)
[2024-08-15] MEDS: ZESTRIL 5 MG PO (18:28)
[2024-08-15] MEDS: ZETIA 10 MG PO (18:28)
--- NOTE | 2024-08-15 18:46 | PTCARENOTE ---
right groin arterial site dsg. saturated with blood, dressing changed, distal pulse weak, but palpable.
[2024-08-15] MEDS: SENOKOT 8.6 MG PO (20:14)
[2024-08-15 22:06] LABS: Glucose - Point of Care 172 mg/dl (70-99)
--- NOTE | 2024-08-16 01:01 | PTCARENOTE ---
Received care of patient at change of shift. Tele monitor shows SR, HR in the 60-70's. Right groin dressing saturated, no hematoma noted at this time. 20 mins of manual pressure held. Dry dressing applied along w/ a hemostasis pad. B/l DP pulses
palpable. Patient denies any chest pain or discomfort at this time. Assisted patient to the bathroom, pt denies any dizziness and has a stable gait. Call fu in reach.
[2024-08-16 01:53] VITALS: BMI 23.0
[2024-08-16 02:05] VITALS: BP 110/63
[2024-08-16 02:29] LABS: Hematocrit 39.1 % (39.0-52.0); Hemoglobin 13.3 g/dL (13.0-18.0); Mean Corpuscular Hgb 28.4 pg (27.0-31.0); Mean Corpuscular Volume 83.5 fL (80.0-94.0); Mean Platelet Volume 9.5 fL (7.4-10.4); Platelet Count 229 10^3/uL (130-400); Red Blood Cell Count 4.68 10^6/uL (4.70-6.10); Red Cell Dist. Width 14.3 % (11.5-14.5)
[2024-08-16 02:54] LABS: Blood Urea Nitrogen 19 mg/dl (9-20); Calcium 9.5 mg/dl (8.4-10.2); Carbon Dioxide 19 mmol/L (22-30); Chloride 110 mmol/L (98-107); Estimated Creatinine Clearance 78 ml/min; Glucose 143 mg/dl (70-99); HDL Cholesterol 52 mg/dl; LDL Cholesterol, Calculated 37 mg/dl; Potassium 4.1 mmol/L (3.5-5.1); Sodium 135 mmol/L (135-145); Total Cholesterol 109 mg/dl (50-199); Triglyceride 100 mg/dl (10-149); Very Low Density Lipoprotein 20 mg/dl (0-30); eGFR > 60.00
[2024-08-16 07:02] VITALS: BP 107/58
[2024-08-16 07:07] LABS: Glucose - Point of Care 154 mg/dl (70-99)
[2024-08-16] MEDS: PROTONIX 40 MG PO (07:51)
[2024-08-16] MEDS: VITAMIN B-12 500 MCG PO (07:51)
[2024-08-16] MEDS: SENOKOT 8.6 MG PO (07:54)
[2024-08-16] MEDS: VITAMIN D3 (cholecalciferol) 50 MCG PO (07:54)
[2024-08-16] MEDS: PLAVIX 75 MG PO (07:54)
[2024-08-16] MEDS: FLORASTOR 250 MG PO (07:54)
--- NOTE | 2024-08-16 08:12 | W.PN.CARDCBS ---
Addendum entered and electronically signed by Latha Joe DO 08/16/24 10:16:
I saw and examined the patient.
[employer]'s note was reviewed and I agree with the note.
Comment: Patient was seen and examined with at bedside. Sitting out of bed to a chair without cardiac symptoms. Denies chest pain or pressure, shortness of breath, or dizziness. No groin pain.
GEN: NAD, RA
HEENT: mmm
LUNGS: CTA B/L, no wheezes/rales
CV: Reg, S1/S2, 1/6 syst LSB
ABD: soft, BS+, NT/ND
EXT: No edema
SKIN: R groin site c/d/i.
Plan:
- Unstable angina s/p cardiac catheterization 08/15/2024 resulting in SVG to diagonal PCI.
- Cardiac catheterization also demonstrated progression of CAD in [place] RCA and SVG to ramus. No intervention performed; plan for medical therapy
- Doing well without cardiac symptoms following stenting
- Continue aspirin, Plavix. Hemoglobin 13.3. Right groin site clean dry and intact
- LDL 37. Continue Crestor, Zetia
- Resume outpatient diabetic meds 48 hours post cath
- Noted to have evidence of what appears to be most consistent with Wenckebach on review of telemetry overnight. Patient asymptomatic. No pauses or high grade av block noted. not on av ana blocking agent. he does report he was not using his CPAP
overnight as he normally would at home. Will continue to follow in outpatient setting. Discussed with patient and at bedside
- Will arrange outpatient cardiac follow-up
- Likely okay for discharge today
Original Note:
Today's Communication / Plan
-
continue asa, plavix, crestor, zetia, lisinopril
ambulate
likely for DC today
OP cardiac follow up arranged
Impression / Plan
-
Please refer to office note dated 08/15/24
Primary Candy Maker: Dr. Adriana Faith
Assessment:
Chest burning
Crescendo angina
Abnormal EKG
CAD
s/p CABG x3 in 2006 [facility] with one graft reportedly nonfunctional
history of multiple PCI with stent in stent and brachytherapy
s/p SVG to diag PCI 08/15/24 with modest progression of CAD in [place] RCA and SVG-ramus, medical mgmt
Weshantkesteven
DM2, on mounjaro since 01/2024
HLD with elevated LP(a)
History of vertigo/Meniere's disease
JAIR on CPAP
GERD
Cath 05/23/2018 at [facility]: Proximally occluded LAD at previously stented area, diffuse disease of RCA with 40% PL lesion and collaterals to distal LAD, VG to ramus into second diagonal patent, SALAS to LAD patent, LAD occluded after insertion with
retrograde filling of LAD via graft
ECHO 03/13/24: EF 55 to 60%, no regional wall motion abnormalities noted, mild , mild to moderate eccentric AR, dilated sinus of Valsalva 4.3 cm
Plan:
- Patient presented with chest burning concerning for crescendo angina
- Underwent cardiac catheterization 08/15/2024 resulting in SVG to diagonal PCI. Was also noted at time of cath to have modest progression of CAD in [place] RCA and SVG to ramus. Plan will be for medical management at this time
- Ambulate this morning to ensure no recurrence of symptoms
- Continue aspirin, Plavix. Hemoglobin 13.3. Right groin site clean dry and intact
- LDL 37. Continue Crestor, Zetia
- Resume outpatient diabetic meds 48 hours post cath
- Noted to have evidence of what appears to be most consistent with Dany on review of telemetry overnight. Patient asymptomatic. No pauses or high grade av block noted. not on av ana blocking agent. he does report he was not using his CPAP
overnight as he normally would at home. Will continue to follow in outpatient setting. Discussed with patient and at bedside
- Will arrange outpatient cardiac follow-up
- Likely okay for discharge today
- d/w nursing
Progress Note - Candy Maker
Subjective
Date of Service: August 16, 2024
feeling well. no issues overnight
Objective
Labs:
08/16/24 02:13
08/16/24 02:13
Labs
Hgb 13.3 g/dL (13.0-18.0) 08/16/24 02:13
Hct 39.1 % (39.0-52.0) 08/16/24 02:13
Plt Count 229 10^3/uL (130-400) 08/16/24 02:13
PT 13.2 Sec (11.4-14.6) 08/15/24 08:57
INR 0.95 08/15/24 08:57
APTT Cancelled 08/16/24 00:15
Sodium 135 mmol/L (135-145) 08/16/24 02:13
Potassium 4.1 mmol/L (3.5-5.1) 08/16/24 02:13
BUN 19 mg/dl (9-20) 08/16/24 02:13
Creatinine 0.8 mg/dL (0.7-1.3) 08/16/24 02:13
Glucose 143 mg/dl (70-99) H 08/16/24 02:13
Troponins
08/15/24 08/15/24 08/15/24
08:57 09:49 17:13
Troponin I Cancelled < 0.012 Cancelled
08/15/24
20:13
Troponin I Cancelled
Vital Signs and I&O:
Vital Signs
Temp Pulse Resp BP Pulse Ox
97.4 F 68 20 110/63 98
08/16/24 07:02 08/16/24 06:00 08/16/24 07:02 08/16/24 02:08/16/24 07:02
Vital Signs
Temp Pulse Resp BP Pulse Ox
97.4 F 68 20 110/63 98
08/16/24 07:02 08/16/24 06:00 08/16/24 07:02 08/16/24 02:05 08/16/24 07:02
Intake & Output
08/14/24 08/15/24 08/16/24 08/17/24
07:59 07:59 07:59 07:59
Intake Total 905 / 905
Output Total 1250 / 1250
Balance -345 / -345
Physical Exam
Physical Exam
GEN: No distress, awake, alert, oriented x3
HEENT: supple, anicteric, mmm, eomi
LUNGS: CTA B/L, no wheezes/rales
CV: Reg, S1/S2, 1/6 syst LSB
ABD: soft, BS+, NT/ND
EXT: No cyanosis, clubbing, edema
NEURO: Gross non-focal
SKIN: Warm, pink, dry. No rash. R groin site c/d/i.
[2024-08-16] MEDS: NOVOLOG FLEXPEN-LOW RESISTANCE 1 UNITS SC (09:24)
--- NOTE | 2024-08-16 09:55 | W.PN.HOSP.TC ---
Today's Communication/Plan
-
dc to home
Assessment / Plan
Assessment / Plan
Assessment:
unstable angina (crescendo angina)
Underlying hx of Coronary artery disease, status post CABG
- s/p [facility] 08/15: resulting in SVG to diagonal PCI. Was also noted at time of cath to have modest progression of CAD in [place] RCA and SVG to ramus. Plan will be for medical management as below
- ASA/Plavix x 1 year. Zetia/Crestor
- OP Cardiology f/u
1st degree AV block; Wenckebach rhythm
- OP f/u
HLD - Zetia/Crestor
NIDDM
- resume PO meds 08/17 (2 days post-cath)
GERD
- PPI continued
Essential HTN
- continue YONATHAN
DVT ppx: SC Heparin
Code: Full
More than 30 minutes spent in discharge including
Final examination of the patient
Summarizing hospital stay
Instructions for continuing care to all relevant caregivers
Preparation of discharge records, prescriptions, and referral forms
Total time spent (in minutes): 41
Anticipated Discharge: Today
Subjective/Interval History
-
Date of Service: August 16, 2024
resting comfortably and ambulating without chest pain
Objective Data
-
Labs:
Laboratory Results
08/16/24 08/16/24
00:15 02:13
WBC 7.0
Hgb 13.3
Hct 39.1
Plt Count 229
APTT Cancelled
Sodium 135
Potassium 4.1
Chloride 110 H
Carbon Dioxide 19 L
BUN 19
Creatinine 0.8
Glucose 143 H
Calcium 9.5
Vital Signs:
Vital Signs
Temp Pulse Resp BP Pulse Ox
97.4 F 67 20 107/58 98
08/16/24 07:02 08/16/24 09:00 08/16/24 07:02 08/16/24 07:02 08/16/24 07:02
I&O
08/15/24 08/16/24 08/17/24
06:59 06:59 06:59
Intake Total 905 / 905
Output Total 1250 / 1250
Balance -345 / -345
Physical Exam
-
General: No Apparent Distress
HEENT: Normocephalic and Atraumatic
Respiratory: Negative Wheezes
Cardiac: Regular Rhythm and S1/S2
Genito-urinary: No Costovertebral Tender
Neuro: AO x 3
Psych: Calm
Data Reviewed
-
Total Time Spent with Patient (in minutes): 41
Labs: Labs Reviewed by me
--- NOTE | 2024-08-16 10:05 | W.DS.TRANS ---
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
-
Discharge Instructions:
Discharge Diagnosis/Procedures unstable angina with Angioplasty with stent to
vein graft to ramus artery on 08/15
Diet Low Cholesterol,Diabetic, Carb Controlled
Activity As tolerated
Driving Restrictions No driving for 24 hours
Other Services Cardiac Rehab
Instructions:
Stand-Alone Forms: DC Instructions- Cath/EP Lab
Changes to Home Medications: No
Discharge Medications:
DC Medications w/original date entered in [facility]
cholecalciferol (vitamin D3) 50 mcg (2,000 unit) tablet 2,000 units PO DAILY Supplement 10/26/19
cyanocobalamin (vitamin B-12) 100 mcg tablet 500 mcg PO DAILY Supplement 10/26/19
empagliflozin 25 mg tablet (Jardiance) 25 mg PO DAILY Diabetes 10/26/19
ezetimibe 10 mg tablet (Zetia) 10 mg PO QPM High cholesterol 10/26/19
omeprazole 40 mg capsule,delayed release 40 mg PO DAILY Gastrointestinal issue 10/26/19
nitroglycerin 0.4 mg sublingual tablet 0.4 mg sublingual [id number] PRN chest pain #30 tabs 11/16/19
glimepiride 4 mg tablet 4 mg PO BIDPRN PRN high blood sugar 01/19/22
rosuvastatin 10 mg tablet (Crestor) 10 mg PO QPM 01/19/22
acetazolamide 125 mg tablet 62.5 mg (1/2 x 125 mg) PO QPM #1 tab 06/29/22
acetazolamide 125 mg tablet 125 mg PO DAILY #1 tab 06/29/22
Saccharomyces boulardii 250 mg capsule (Florastor) 250 mg PO DAILY 08/15/24
aspirin 81 mg tablet,delayed release 81 mg PO HS 08/15/24
coQ10 (ubiquinol) 100 mg capsule 100 mg PO DAILY 08/15/24
inulin-sorbitol 2 gram chewable tablet 1 tab PO TID 08/15/24
lisinopril 5 mg tablet 5 mg PO QPM 08/15/24
metformin 500 mg tablet,extended release 24 hr 1,000 mg PO BID 08/15/24
polyethylene glycol 3350 17 gram oral powder packet (Miralax) 17 g PO DAILYPRN PRN CONSTIPATION 08/15/24
sennosides 8.6 mg tablet (senna) 8.6 mg PO BID 08/15/24
tirzepatide 7.5 mg/0.5 mL subcutaneous pen injector (Mounjaro) 7.5 mg SC WE 08/15/24
clopidogrel 75 mg tablet 75 mg PO DAILY #30 tabs 08/16/24
Home Medication Changes
Pending Results: No
Total time spent discharging patient (in min): 41
[2024-08-16 11:49] VITALS: BP 126/65
--- NOTE | 2024-08-16 13:34 | CM ---
CM following for DC planning needs.
Met w/ patient + spouse at bedside to complete initial assessment.
Pt. states that he resides w/ spouse in a private, 4 level duplex. He is functionally indep. w/ ADLs, mobility without the use of any assisted device. He has a CPAP at home, which he uses regularly.
Pt. has RX plan and uses [facility] in [place] for prescription needs.
DC plan is for home, no needs.
== END 2024-08-16 11:59 | disposition home or self-care (01) | DRG 322 ==
LOC: IVU 12:55
PROVIDERS: Internal Medicine Interventional Cardiology; Nurse Practitioner Adult Health; Registered Nurse; ADMITTING PHYSICIAN Internal Medicine; ATTENDING PHYSICIAN Internal Medicine; EMERGENCY PHYSICIAN Emergency Medicine; FAMILY PHYSICIAN Family Medicine
PROC: B2111ZZ Fluoroscopy of Multiple Coronary Arteries using Low Osmolar Contrast (ICD-10-PCS; 2024-08-15)
PROC: B2121ZZ Fluoroscopy of Single Coronary Artery Bypass Graft using Low Osmolar Contrast (ICD-10-PCS; 2024-08-15)
PROC: 4A023N7 Measurement of Cardiac Sampling and Pressure, Left Heart, Percutaneous Approach (ICD-10-PCS; 2024-08-15)
PROC: B2181ZZ Fluoroscopy of Left Internal Mammary Bypass Graft using Low Osmolar Contrast (ICD-10-PCS; 2024-08-15)
PROC: B2151ZZ Fluoroscopy of Left Heart using Low Osmolar Contrast (ICD-10-PCS; 2024-08-15)
PROC: 027034Z Dilation of Coronary Artery, One Artery with Drug-eluting Intraluminal Device, Percutaneous Approach (ICD-10-PCS; 2024-08-15)
DX: I25.110 Atherosclerotic heart disease of native coronary artery with unstable angina pectoris (principal); E11.649 Type 2 diabetes mellitus with hypoglycemia without coma; E78.00 Pure hypercholesterolemia, unspecified; G47.33 Obstructive sleep apnea (adult) (pediatric); I10 Essential (primary) hypertension; K21.9 Gastro-esophageal reflux disease without esophagitis; I44.0 Atrioventricular block, first degree; H81.09 Meniere's disease, unspecified ear; F41.9 Anxiety disorder, unspecified; M19.90 Unspecified osteoarthritis, unspecified site; Z95.1 Presence of aortocoronary bypass graft; Z88.8 Allergy status to other drugs, medicaments and biological substances; Z79.82 Long term (current) use of aspirin; Z79.84 Long term (current) use of oral hypoglycemic drugs
CPT/HCPCS: 71045; 80048; 80053; 80061; 82962; 84484; 85025; 85027; 85347; 85610; 85730; 93005; 93459; 96365; 96366; 99152; 99153; 99285; C1725; C1760; C1769; C1874; C1894; C9604; Q9967

== ENCOUNTER → 2024-10-31 06:23 | Outpatient (REF) | payer OTHER, SELFPAY ==
[2024-10-31 08:22] LABS: ALT (SGPT) 23 U/L (0-50); AST (SGOT) 27 U/L (17-59); Albumin 5.0 g/dl (3.5-5.0); Alkaline Phosphatase 46 U/L (38-126); Blood Urea Nitrogen 20 mg/dl (9-20); Calcium 9.5 mg/dl (8.4-10.2); Carbon Dioxide 22 mmol/L (22-30); Chloride 100 mmol/L (98-107); Glucose 122 mg/dl (70-99); HDL Cholesterol 79 mg/dl; LDL Cholesterol, Calculated 49 mg/dl; Potassium 4.6 mmol/L (3.5-5.1); Sodium 133 mmol/L (135-145); Total Protein 7.4 g/dl (6.3-8.2); Very Low Density Lipoprotein 16 mg/dl (0-30); eGFR > 60.00
[2024-10-31 08:34] LABS: Microalb - Urine Creatinine 44.100 mg/dl
[2024-10-31 08:40] LABS: Microalbumin, Random Urine <0.6 mg/dl (0.6-1.7)
[2024-10-31 08:53] LABS: TSH 3.38 uIU/ml (0.47-4.68)
[2024-10-31 09:32] LABS: Glycohemoglobin (HgbA1c) 6.2 % (4.0-5.6)
== END ==
LOC: REG 06:23
PROVIDERS: ATTENDING PHYSICIAN Internal Medicine Endocrinology, Diabetes & Metabolism; FAMILY PHYSICIAN Family Medicine; OTHER PHYSICIAN Internal Medicine Advanced Heart Failure and Transplant Cardiology; REFERRING PHYSICIAN Internal Medicine Cardiovascular Disease
DX: E78.2 Mixed hyperlipidemia (principal); I10 Essential (primary) hypertension; E11.9 Type 2 diabetes mellitus without complications
CPT/HCPCS: 36415; 80053; 80061; 82043; 82570; 83036; 84443

== ENCOUNTER → 2024-11-01 08:50 | Outpatient (REF) | payer OTHER, SELFPAY ==
[2024-11-01 14:38] LABS: PSA, Total - Screen 1.22 ng/ml (0.0-4.0)
== END ==
LOC: REG 08:50
PROVIDERS: ATTENDING PHYSICIAN Family Medicine
DX: Z12.5 Encounter for screening for malignant neoplasm of prostate (principal); N40.0 Benign prostatic hyperplasia without lower urinary tract symptoms
CPT/HCPCS: 36415; G0103

== ENCOUNTER → 2025-02-13 06:45 | Outpatient (REF) | payer OTHER, SELFPAY ==
[2025-02-13 08:16] LABS: Hematocrit 41.9 % (39.0-52.0); Hemoglobin 13.6 g/dL (13.0-18.0); Mean Corp Hgb Conc. 32.5 g/dL (33.0-37.0); Mean Corpuscular Volume 86.2 fL (80.0-94.0); Nucleated Red Blood Cells % 0 % (-); Platelet Count 215 10^3/uL (130-400); Red Cell Dist. Width 14.2 % (11.5-14.5)
[2025-02-13 08:48] LABS: Vitamin D, 25-OH*** 65.3 ng/mL (30-80)
[2025-02-13 08:49] LABS: ALT (SGPT) 22 U/L (0-50); AST (SGOT) 27 U/L (17-59); Albumin 4.4 g/dl (3.5-5.0); Alkaline Phosphatase 51 U/L (38-126); Blood Urea Nitrogen 22 mg/dl (9-20); Calcium 9.6 mg/dl (8.4-10.2); Carbon Dioxide 22 mmol/L (22-30); Chloride 104 mmol/L (98-107); Glucose 105 mg/dl (70-99); HDL Cholesterol 68 mg/dl; LDL Cholesterol, Calculated 41 mg/dl; Potassium 4.2 mmol/L (3.5-5.1); Sodium 133 mmol/L (135-145); Total Protein 6.9 g/dl (6.3-8.2); Very Low Density Lipoprotein 16 mg/dl (0-30); eGFR > 60.00
[2025-02-13 09:35] LABS: Glycohemoglobin (HgbA1c) 6.4 % (4.0-5.9)
== END ==
LOC: REG 06:45
PROVIDERS: ATTENDING PHYSICIAN Internal Medicine Endocrinology, Diabetes & Metabolism; FAMILY PHYSICIAN Family Medicine; OTHER PHYSICIAN Internal Medicine Advanced Heart Failure and Transplant Cardiology; OTHER PHYSICIAN Internal Medicine Cardiovascular Disease
DX: E55.9 Vitamin D deficiency, unspecified (principal); I10 Essential (primary) hypertension
CPT/HCPCS: 36415; 80053; 80061; 82306; 83036; 85025